=== PATIENT | female | born 1985 | race Caucasian/White ===

== ENCOUNTER 2019-10-30 04:44 | Emergency (ER) | payer BC ==
[2019-10-30] MEDS ORDERED: SODIUM CHLORIDE 0.9% 1,000 ML IV ONE (04:59)
[2019-10-30 05:22] LABS: Basophils # (A) 0.1 k/uL (0-0.2); Basophils % (A) 0 %; Eosinophils # (A) 0.3 k/uL (0-0.7); Eosinophils % (A) 3 %; HCT 37.1 % (34.0-46.0); HGB 11.8 gm/dL (11.4-16.0); Lymphocytes # (A) 2.1 k/uL (1.0-4.8); Lymphocytes % (A) 17 %; MCH 26.1 pg (25.0-35.0); MCHC 31.9 g/dL (31.0-37.0); MCV 81.8 fL (80.0-100.0); Mean Platelet Volume 7.3; Monocytes # (A) 0.5 k/uL (0-1.0); Monocytes % (A) 4 %; Neutrophils # (A) 9.4 k/uL (1.3-7.7); Neutrophils % (A) 74 %; Platelet Count 265 k/uL (150-450); RBC 4.53 m/uL (3.80-5.40); RDW 14.2 % (11.5-15.5); WBC 12.6 k/uL (3.8-10.6)
[2019-10-30 05:30] LABS: ALT 16 U/L (4-34); AST 26 U/L (14-36); African American GFR (CKD) >90 (>60 ml/min/1.73 sqM); Albumin 4.4 g/dL (3.5-5.0); Alkaline Phosphatase 55 U/L (38-126); Anion Gap 9 mmol/L; Blood Urea Nitrogen 17 mg/dL (7-17); Calcium 9.6 mg/dL (8.4-10.2); Carbon Dioxide 21 mmol/L (22-30); Chloride 102 mmol/L (98-107); Glucose 166 mg/dL (74-99); Non-African American GFR(CKD) 81 (>60 ml/min/1.73 sqM); Sodium 132 mmol/L (137-145); Total Bilirubin 0.6 mg/dL (0.2-1.3); Total Protein 7.2 g/dL (6.3-8.2)
[2019-10-30 05:31] LABS: Mucus,Urine Rare /hpf; RBC,Urine 2 /hpf (0-5); Squamous Epithelial Cell,Urine 5 /hpf (0-4); WBC,Urine 2 /hpf (0-5)
[2019-10-30 05:32] LABS: Appearance,Urine Clear (Clear)
[2019-10-30 05:33] LABS: Bilirubin,Urine Negative (Negative); Blood,Urine Small (Negative); Color,Urine Yellow; Glucose,Urine (UA) Negative (Negative); Ketones,Urine Negative (Negative); Leukocyte Esterase,Urine Negative (Negative); Nitrite,Urine Negative (Negative); Protein,Urine Negative (Negative); Urobilinogen,Urine <2.0 mg/dL (<2.0)
[2019-10-30 05:39] LABS: Potassium 4.1 mmol/L (3.5-5.1)
--- NOTE | 2019-10-30 05:50 | ED ---
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 Patient presents the ER today via private vehicle for evaluation of pain in the right flank. Patient reports she had an episode similar to this proximal nearly week ago pain lasted for an hour and resolved. She did have some lower urinary tract symptoms with that and took some leftover Keflex. She states that today the pain began around midnight, was instant in onset with severe. She took some [place] and Flomax that she had at home because of her mother's history of kidney stones. Patient reports the pain persisted until approximately 4:30 AM at which time she asked her to bring her to the ER for evaluation. Pain was not associated with any nausea, vomiting, abdominal cramping. She had no change in bowel habits. Upon evaluation patient reports her pain is improved and has actually completely resolved. Patient denies any concern for sexually transmitted infections. - Related Data Home Medications Medication Instructions Recorded Confirmed Hydrocortisone Cream 1 applic TOPICAL QID 12/29/13 12/29/13 [Hydrocortisone 1% Cream] Previous Rx's Medication Instructions Recorded Acetaminophen-Codeine 300-30mg 1 - 2 each PO Q4HR PRN #20 tab 12/30/13 [Tylenol w/codeine #3] Ibuprofen [Motrin] 600 mg PO Q6HR PRN #40 tab 12/30/13 Allergies Allergy/AdvReac Type Severity Reaction Status Date / Time No Known Allergies Allergy Verified 10/30/19 04:55 Review of Systems ROS Statement: Those systems with pertinent positive or pertinent negative responses have been documented in the HPI. ROS Other: All systems not noted in ROS Statement are negative. Past Medical History Past Medical History: No Reported History Additional Past Medical History / Comment(s): Gestational diabetes History of Any Multi-Drug Resistant Organisms: None Reported Past Surgical History: No Surgical Hx Reported Additional Past Surgical History / Comment(s): oral surgery at age 11 Past Anesthesia/Blood Transfusion Reactions: No Reported Reaction Past Psychological History: Anxiety, Depression Smoking Status: Never smoker Past Alcohol Use History: Occasional Past Drug Use History: None Reported - Past Family History Father Family Medical History: No Reported History, Unable to Obtain General Exam - General Exam Comments Initial Comments: Physical Exam GENERAL: Patient is well-developed and well-nourished. Patient is nontoxic and well-hydrated and is in no distress. HENT: Normocephalic, Atraumatic. EYES: PERRL, EOMI PULMONARY: Unlabored respirations. CARDIOVASCULAR: RRR Warm and well perfused extremities ABDOMEN: Non-distended No Padilla sign, no McBurney's point tenderness, no tenderness to palpation anywhere in the abdomen, non-peritoneal SKIN: No rashes or bruising : Deferred NEUROLOGIC: Alert and oriented Normal speech Normal gait MUSCULOSKELETAL: Moving all extremities with no apparent injury PSYCHIATRIC: No SI/HI Limitations: no limitations Course Vital Signs 10/30/19 04:50 Temperature 98.2 F Pulse Rate 125 H Respiratory 18 Rate Blood Pressure 151/96 O2 Sat by Pulse 99 Oximetry Medical Decision Making - Medical Decision Making The patient was seen and evaluated, history was obtained from the patient Patient with 2 episodes of colicky right-sided flank pain in the past week, this episode lasted longer she treated it with [place] and Flomax and have resolution of her pain became to the ER for evaluation. Analysis was obtained and is no s igns of infection no gross hematuria Labs with mild leukocytosis likely reactive to pain Results were discussed with the patient remains pain-free, at this time I did offer computed tomography scan to evaluate for any stone burden however patient would like to avoid the radiology considering that she is asymptomatic she like to be discharged home at this time Patient did remain mildly tachycardic however she has a history of tachycardia for which she takes metoprolol and is due for her morning dose at this time she will take it when she gets home All questions pertaining care were answered return parameters were discussed patient was discharged home in stable condition - Lab Data Result diagrams: 10/30/19 05:03 10/30/19 05:03 Lab Results 10/30/19 10/30/19 10/30/19 Range/Units 05:03 05:03 05:03 WBC 12.6 H (3.8-10.6) k/uL RBC 4.53 (3.80-5.40) m/uL Hgb 11.8 (11.4-16.0) gm/dL Hct 37.1 (34.0-46.0) % MCV 81.8 (80.0-100.0) fL MCH 26.1 (25.0-35.0) pg MCHC 31.9 (31.0-37.0) g/dL RDW 14.2 (11.5-15.5) % Plt Count 265 (150-450) k/uL Neutrophils % 74 % Lymphocytes % 17 % Monocytes % 4 % Eosinophils % 3 % Basophils % 0 % Neutrophils # 9.4 H (1.3-7.7) k/uL Lymphocytes # 2.1 (1.0-4.8) k/uL Monocytes # 0.5 (0-1.0) k/uL Eosinophils # 0.3 (0-0.7) k/uL Basophils # 0.1 (0-0.2) k/uL Sodium (137-145) mmol/L Potassium (3.5-5.1) mmol/L Chloride (98-107) mmol/L Carbon Dioxide (22-30) mmol/L Anion Gap mmol/L BUN (7-17) mg/dL Creatinine (0.52-1.04) mg/dL Est GFR (CKD-EPI)AfAm (>60 ml/min/1.73 sqM) Est GFR (CKD-EPI)NonAf (>60 ml/min/1.73 sqM) Glucose (74-99) mg/dL Calcium (8.4-10.2) mg/dL Total Bilirubin (0.2-1.3) mg/dL AST (14-36) U/L ALT (4-34) U/L Alkaline Phosphatase (38-126) U/L Total Protein (6.3-8.2) g/dL Albumin (3.5-5.0) g/dL Urine Color Yellow Urine Appearance Clear (Clear) Urine pH 6.0 (5.0-8.0) Ur Specific [place] 1.030 (1.001-1.035) Urine Protein Negative (Negative) Urine Glucose (UA) Negative (Negative) Urine Ketones Negative (Negative) Urine Blood Small (Negative) Urine Nitrite Negative (Negative) Urine Bilirubin Negative (Negative) Urine Urobilinogen <2.0 (<2.0) mg/dL Ur Leukocyte Esterase Negative (Negative) Urine RBC 2 (0-5) /hpf Urine WBC 2 (0-5) /hpf Ur Squamous Epith Cells 5 H (0-4) /hpf Urine Mucus Rare H (None) /hpf Urine HCG, Qual Not Detected (Not Detectd) 10/30/19 Range/Units 05:03 WBC (3.8-10.6) k/uL RBC (3.80-5.40) m/uL Hgb (11.4-16.0) gm/dL Hct (34.0-46.0) % MCV (80.0-100.0) fL MCH (25.0-35.0) pg MCHC (31.0-37.0) g/dL RDW (11.5-15.5) % Plt Count (150-450) k/uL Neutrophils % % Lymphocytes % % Monocytes % % Eosinophils % % Basophils % % Neutrophils # (1.3-7.7) k/uL Lymphocytes # (1.0-4.8) k/uL Monocytes # (0-1.0) k/uL Eosinophils # (0-0.7) k/uL Basophils # (0-0.2) k/uL Sodium 132 L (137-145) mmol/L Potassium 4.1 (3.5-5.1) mmol/L Chloride 102 (98-107) mmol/L Carbon Dioxide 21 L (22-30) mmol/L Anion Gap 9 mmol/L BUN 17 (7-17) mg/dL Creatinine 0.92 (0.52-1.04) mg/dL Est GFR (CKD-EPI)AfAm >90 (>60 ml/min/1.73 sqM) Est GFR (CKD-EPI)NonAf 81 (>60 ml/min/1.73 sqM) Glucose 166 H (74-99) mg/dL Calcium 9.6 (8.4-10.2) mg/dL Total Bilirubin 0.6 (0.2-1.3) mg/dL AST 26 (14-36) U/L ALT 16 (4-34) U/L Alkaline Phosphatase 55 (38-126) U/L Total Protein 7.2 (6.3-8.2) g/dL Albumin 4.4 (3.5-5.0) g/dL Urine Color Urine Appearance (Clear) Urine pH (5.0-8.0) Ur Specific [place] (1.001-1.035) Urine Protein (Negative) Urine Glucose (UA) (Negative) Urine Ketones (Negative) Urine Blood (Negative) Urine Nitrite (Negative) Urine Bilirubin (Negative) Urine Urobilinogen (<2.0) mg/dL Ur Leukocyte Esterase (Negative) Urine RBC (0-5) /hpf Urine WBC (0-5) /hpf Ur Squamous Epith Cells (0-4) /hpf Urine Mucus (None) /hpf Urine HCG, Qual (Not Detectd) Disposition Clinical Impression: Renal colic on right side Disposition: HOME SELF-CARE Condition: Stable Instructions (If sedation given, give patient instructions): Renal Colic (ED) Is patient prescribed a controlled substance at d/c from ED?: No Referrals: Lele Arce MD [Primary Care Provider] - 1-2 days
[2019-10-30 06:05] VITALS: BP 133/87; PULSE 91; RESP 20; TEMP 98.5
== END 2019-10-30 06:05 | disposition home or self-care (01) ==
LOC: EC 04:44
DX: N20.0 Calculus of kidney (principal)
CPT/HCPCS: 36415; 80053; 81001; 81025; 85025; 96360; 99284

== ENCOUNTER 2019-10-30 06:28 | Emergency (ER) | payer BC ==
[2019-10-30 06:34] VITALS: RESP 18; TEMP 98.5
[2019-10-30] MEDS ORDERED: KETOROLAC 15 MG/ML 1 ML VIAL IVP STA (06:36)
[2019-10-30] MEDS ORDERED: SODIUM CHLORIDE 0.9% 1,000 ML IV SCH (06:45)
--- NOTE | 2019-10-30 07:09 | ED ---
Abdominal Pain HPI - General Source: patient Mode of arrival: ambulatory Limitations: no limitations <Maribeth Amor - Last Filed: 10/30/19 07:20> <Frank Chavez - Last Filed: 10/30/19 07:55> - General Chief Complaint: Abdominal Pain Stated Complaint: RT flank pain Time Seen by Provider: 10/30/19 06:35 - History of Present Illness Initial Comments: Patient is a previously healthy 34 her old female who was seen in the ER earlier this morning for right-sided flank pain, her pain had resolved prior to arrival her labs showed leukocytosis in urine with no signs of infection or hematuria. Patient declined a computed tomography scan and left asymptomatic however was only out of the ER for approximately 20-25 minutes when she had another episode of colic bili right-sided flank pain but reports now is lower in the right lower quadrant. No associated nausea vomiting or change in bowel habits. (Maribeth Amor) - Related Data Home Medications Medication Instructions Recorded Confirmed Hydrocortisone Cream 1 applic TOPICAL QID 12/29/13 12/29/13 [Hydrocortisone 1% Cream] Previous Rx's Medication Instructions Recorded Acetaminophen-Codeine 300-30mg 1 - 2 each PO Q4HR PRN #20 tab 12/30/13 [Tylenol w/codeine #3] Ibuprofen [Motrin] 600 mg PO Q6HR PRN #40 tab 12/30/13 Ibuprofen [Motrin] 600 mg PO Q8HR PRN #24 tab 10/30/19 Tamsulosin [Flomax] 0.4 mg PO DAILY #7 cap 10/30/19 Allergies Allergy/AdvReac Type Severity Reaction Status Date / Time No Known Allergies Allergy Verified 10/30/19 06:33 Review of Systems ROS Other: All systems not noted in ROS Statement are negative. <Maribeth Amor - Last Filed: 10/30/19 07:20> ROS Other: All systems not noted in ROS Statement are negative. <Frank Chavez - Last Filed: 10/30/19 07:55> ROS Statement: Those systems with pertinent positive or pertinent negative responses have been documented in the HPI. Past Medical History Past Medical History: No Reported History Additional Past Medical History / Comment(s): Gestational diabetes History of Any Multi-Drug Resistant Organisms: None Reported Past Surgical History: No Surgical Hx Reported Additional Past Surgical History / Comment(s): oral surgery at age 11 Past Anesthesia/Blood Transfusion Reactions: No Reported Reaction Past Psychological History: Anxiety, Depression Smoking Status: Never smoker Past Alcohol Use History: Occasional Past Drug Use History: None Reported - Past Family History Father Family Medical History: No Reported History, Unable to Obtain <Maribeth Amor - Last Filed: 10/30/19 07:20> General Exam Limitations: no limitations <Maribeth Amor - Last Filed: 10/30/19 07:20> - General Exam Comments Initial Comments: Physical Exam GENERAL: Patient is well-developed and well-nourished. Patient is nontoxic and well-hydrated and is in no distress. HENT: Normocephalic, Atraumatic. EYES: PERRL, EOMI PULMONARY: Unlabored respirations. CARDIOVASCULAR: RRR Warm and well perfused extremities ABDOMEN: Soft, Non-distended, non-peritoneal Minimal tenderness in right lower quadrant, tenderness in right flank SKIN: No rashes or bruising : Deferred NEUROLOGIC: Alert and oriented Normal speech Normal gait MUSCULOSKELETAL: Moving all extremities with no apparent injury PSYCHIATRIC: No SI/HI (Maribeth Amor) Course Vital Signs 10/30/19 06:30 Temperature 98.5 F Pulse Rate 127 H Respiratory 18 Rate Blood Pressure 147/90 O2 Sat by Pulse 98 Oximetry Medical Decision Making <Maribeth Amor - Last Filed: 10/30/19 07:20> <Frank Chavez - Last Filed: 10/30/19 07:55> - Medical Decision Making Patient was seen and evaluated patient is again having an episode of pain and is tachycardic Patient is afebrile Given that she had leukocytosis and the patient lower quadrant she will undergo a computed tomography scan with contrast to rule out retrocecal appendicitis though the story is more consistent with a renal colic Patient was given Toradol reported some improvement in pain with Toradol Patient care signed out to Dr Chavez at shift change, patient pending CT scan (Maribeth Amor) 34-year-old patient signed out at shift change awaiting CT results. Patient had some right-sided flank pain concerning for renal colic. Laboratory testing had been performed on previous ER visit which was just 30 minutes prior to this visit. Patient is noted to have a 4 mm renal calculus at the UVJ on the right with mild hydronephrosis and hydroureter. She has additional CT findings which are reported to the patient and she is given a report of this CT. She will be prescribed Flomax, Motrin and she has Boyd at home. She is feeling much better with minimal pain at the time my reevaluation. She additionally will strain her urine and follow-up with urology. (Frank Chavez) Disposition <Maribeth Amor - Last Filed: 10/30/19 07:20> Is patient prescribed a controlled substance at d/c from ED?: No Time of Disposition: 07:55 <Frank Chavez - Last Filed: 10/30/19 07:55> Clinical Impression: Renal colic on right side, Calculus of kidney, Adrenal adenoma Disposition: HOME SELF-CARE Condition: Good Instructions (If sedation given, give patient instructions): Abdominal Pain (ED), Kidney Stones (ED), Renal Colic (ED) Prescriptions: Tamsulosin [Flomax] 0.4 mg PO DAILY #7 cap Ibuprofen [Motrin] 600 mg PO Q8HR PRN #24 tab PRN Reason: Pain Referrals: Lele Arce MD [Primary Care Provider] - 1-2 days
--- NOTE | 2019-10-30 07:47 | CT ---
EXAMINATION TYPE: CT abdomen pelvis w con DATE OF EXAM: 10/30/2019 COMPARISON: NONE HISTORY: 34-year-old female Right flank pain TECHNIQUE: Contiguous axial scanning of the abdomen and pelvis following administration of 100 ml Iso anay 300 IV contrast. Delayed images through the kidneys and coronal/sagittal reconstructions perform ed. CT DLP: 1754.8 mGycm Automated exposure control for dose reduction was used. FINDINGS: LUNG BASES: Heart normal size without pericardial effusion. Lung bases clear without pleural effusion . Tiny hiatal hernia. LIVER/GB: Liver mildly enlarged at 18.4 cm. Diffuse low-attenuation. Portal venous system is patent. No biliary ductal dilatation. PANCREAS: No significant abnormality is seen. SPLEEN: Hilar splenule. ADRENALS: Low-density nodule of the left adrenal gland measuring 2.7 x 1.8 cm. KIDNEYS: Punctate 2 mm nonobstructive left renal calculus. A couple punctate 2 and 3 mm right renal c alculi. There is mild right-sided hydronephrosis with a 4 mm calculus at the right UVJ with correspon ding mild right-sided hydroureter. Mild right-sided perinephric stranding. Homogeneous enhancement of the right kidney. LYMPH NODES: No mesenteric or retroperitoneal lymphadenopathy. BOWEL: No dilated small bowel, free fluid, or free air. Mild stool burden. Suspect visualization of a thin, normal appendix. Mild left-sided diverticular change. No pericolonic inflammation. PELVIS: Minimal perivesicular fat stranding anteriorly. Uterus anteverted. Both ovaries are visualize d. 2.7 cm dominant follicle or functional cyst in the right ovary. No abnormal fluid collection in th e pelvis or pelvic lymphadenopathy. BONES: No osseous destructive process. IMPRESSION: 1. A 4 MM RIGHT UVJ CALCULUS WITH MILD OBSTRUCTIVE UROPATHY. 2. ADDITIONAL PUNCTATE NONOBSTRUCTIVE 2 AND 3 MM BILATERAL NEPHROLITHIASIS. 3. A 2.7 X 1.8 CM LOW-DENSITY NODULE OF THE LEFT ADRENAL GLAND. LIKELY BENIGN ADRENAL ADENOMA. CONSID ER ADRENAL PROTOCOL MRI FOR CONFIRMATION. 4. 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 5. MILD LEFT-SIDED COLONIC DIVERTICULOSIS. A 2.7 CM RIGHT-SIDED OVARIAN DOMINANT FOLLICLE OR FUNCTION AL CYST.
[2019-10-30 08:02] VITALS: BP 158/93; PULSE 94
== END 2019-10-30 08:03 | disposition home or self-care (01) ==
LOC: EC 06:28
DX: N13.2 Hydronephrosis with renal and ureteral calculous obstruction (principal); D35.02 Benign neoplasm of left adrenal gland; D72.829 Elevated white blood cell count, unspecified
CPT/HCPCS: 74177; 96374; 96361; 99284; J1885; Q9967; 36415; 80053; 81001; 81025; 85025; 96360

== ENCOUNTER 2019-12-11 14:39 | Emergency (ER) | payer BC ==
[2019-12-11 14:56] VITALS: BP 152/93; PULSE 91; RESP 18; TEMP 98.9
--- NOTE | 2019-12-11 16:01 | XR ---
EXAMINATION TYPE: XR elbow complete LT DATE OF EXAM: 12/11/2019 COMPARISON: NONE HISTORY: Swelling TECHNIQUE: 3 views FINDINGS: I see no fracture nor dislocation. Elbow joint spaces are normal. There is no sign of elbow joint effusion. IMPRESSION: Negative left elbow exam.
--- NOTE | 2019-12-11 17:29 | US ---
EXAMINATION TYPE: US venous doppler duplex UE LT DATE OF EXAM: 12/11/2019 COMPARISON: NONE CLINICAL HISTORY: pain. SIDE PERFORMED: Patient of large body habitus, technically difficult study. Left Arm: Negative for DVT IMPRESSION: No sign of deep vein thrombosis in the left arm. There is patency of the left side jugular subclavian axial and brachial vein.
--- NOTE | 2019-12-11 17:41 | ED ---
Extremity Problem HPI - General Chief complaint: Extremity Problem,Nontraumatic Stated complaint: arm swelling/sore Time Seen by Provider: 12/11/19 15:11 Source: patient Mode of arrival: ambulatory Limitations: no limitations - History of Present Illness Initial comments: 34-year-old female presents in respiratory for chief complaint of left elbow pain she states she woke up and felt like it is slightly swollen and was concerned about blood clot denies any redness she states she's able to range that she states is slightly sore. She has a fever chills general malaise or surgical procedures performed and the elbow. Denies chest pain SOb, direct trauma, or cancer history of DVT pulmonary embolism exogenous hormone use denies . She states has been getting better the longer she's been in the ER she states is almost nearly resolved remaining review of system negative - Related Data Home Medications Medication Instructions Recorded Confirmed Hydrocortisone Cream 1 applic TOPICAL QID 12/29/13 12/29/13 [Hydrocortisone 1% Cream] Previous Rx's Medication Instructions Recorded Acetaminophen-Codeine 300-30mg 1 - 2 each PO Q4HR PRN #20 tab 12/30/13 [Tylenol w/codeine #3] Ibuprofen [Motrin] 600 mg PO Q6HR PRN #40 tab 12/30/13 Ibuprofen [Motrin] 600 mg PO Q8HR PRN #24 tab 10/30/19 Tamsulosin [Flomax] 0.4 mg PO DAILY #7 cap 10/30/19 Allergies Allergy/AdvReac Type Severity Reaction Status Date / Time No Known Allergies Allergy Verified 12/11/19 14:56 Review of Systems ROS Statement: Those systems with pertinent positive or pertinent negative responses have been documented in the HPI. ROS Other: All systems not noted in ROS Statement are negative. Past Medical History Past Medical History: Diabetes Mellitus, Hypertension Additional Past Medical History / Comment(s): Gestational diabetes, PCOS History of Any Multi-Drug Resistant Organisms: None Reported Past Surgical History: No Surgical Hx Reported Additional Past Surgical History / Comment(s): oral surgery at age 11 Past Anesthesia/Blood Transfusion Reactions: No Reported Reaction Past Psychological History: Anxiety, Depression Smoking Status: Never smoker Past Alcohol Use History: Occasional Past Drug Use History: None Reported - Past Family History Father Family Medical History: No Reported History, Unable to Obtain General Exam - General Exam Comments Initial Comments: General: The patient is awake and alert, in no distress Eye: +3 mm Pupils are equal, round and reactive to light, extra-ocular movements are intact. No nystagmus. There is normal conjunctiva bilaterally. No signs of icterus. Cardiovascular: There is a regular rate and rhythm. No murmur, rub or gallop is appreciated. Respiratory: Lungs are clear to auscultation, respirations are non-labored, breath sounds are equal. No wheezes, stridor, rales, or rhonchi. Musculoskeletal: No redness of elbow, no obviou swelling tender inner aspect. full ROM, minimal tenderness,Strength 5/5. Sensation intact. radial pulses equal bilaterally 2+. Neurological: A&O x 3. CN II-XII intact grossly, There are no obvious motor or sensory deficits. Coordination appears grossly intact. Speech is normal. Skin: Skin is warm and dry and no rashes or lesions are noted. Psychiatric: Cooperative, appropriate mood & affect, normal judgment. Limitations: no limitations Course Vital Signs 12/11/19 14:52 Temperature 98.9 F Pulse Rate 91 Respiratory 18 Rate Blood Pressure 152/93 O2 Sat by Pulse 100 Oximetry Medical Decision Making - Medical Decision Making NEGATIVE X-RAY NEGATIVE PATIENT NEUROVASCULAR INTACT THERE'S A FINDINGS A PHYSICAL EXAMINATION OR HISTORY CONCERNING FOR INFECTION PATIENT BE DISCHARGED WITH PRIMARY CARE FOLLOW-UP SHE IS AGREEABLE AND STATES PAIN IS ALMOST COMPLETELY RESOLVED WELL HER SUBJECTIVE SWELLING. PATIENT CASE DISCUSSED WITH DR. GOULD PATIENT DISCHARGED. WHILE - Lab Data Lab Results 12/11/19 Range/Units 17:30 Urine HCG, Qual Not Detected (Not Detectd) Disposition Clinical Impression: Left elbow pain Disposition: HOME SELF-CARE Condition: Good Instructions (If sedation given, give patient instructions): Tennis Elbow (ED) Additional Instructions: Please use medication as discussed. Please follow-up with family doctor in the next 2 days.. Please return to emergency room if the symptoms increase or worsen or for any other concerns. Is patient prescribed a controlled substance at d/c from ED?: No Referrals: Lele Arce MD [Primary Care Provider] - 1-2 days Time of Disposition: 17:40
== END 2019-12-11 18:11 | disposition home or self-care (01) ==
LOC: EC 14:39
DX: M25.522 Pain in left elbow (principal); R22.32 Localized swelling, mass and lump, left upper limb
CPT/HCPCS: 81025; 99284

== ENCOUNTER 2020-09-23 | Emergency (ER) | payer OTHER | END 2020-09-23 22:12 | disposition home or self-care (01) ==